=== PATIENT | female | born 1945 | race Caucasian/White ===

== ENCOUNTER → 2020-02-27 15:00 | Outpatient (CLI) | payer MEDICARE, OTHER, SELFPAY ==
--- NOTE | ~2020-02-27 | MM_ITS ---
EXAMINATION: MM screening paola BI w carl HISTORY: Screening mammogram TECHNIQUE: Craniocaudal and mediolateral oblique 3-D tomosynthesis images were obtained and synthetic 2-D images were generated. CAD analysis was submitted and interpreted. COMPARISON: 01/14/2018, 12/16/2016, 12/19/2015 bilateral digital screening mammogram examinations BREAST PARENCHYMAL COMPOSITION: There are scattered areas of fibroglandular density. FINDINGS: Numerous bilateral scattered benign calcifications. There is no evidence of suspicious mass , calcification, or architectural distortion to suggest malignancy in either breast. There has been n o suspicious interval change. IMPRESSION: 1. No mammographic evidence of malignancy. 2. Recommend routine screening mammography in one year. BI-RADS Category 2: Benign finding(s). Reviewed, dictated and finalized at location A. LING MACHINE OPERATOR
== END ==
PROVIDERS: PCP Internal Medicine; Visit Provider Internal Medicine
DX: Z12.31 Encounter for screening mammogram for malignant neoplasm of breast (principal)
CPT/HCPCS: 77063; 77067

== ENCOUNTER 2020-09-28 17:47 | Emergency (ER) | payer MEDICARE, OTHER, SELFPAY ==
[2020-09-28 17:56] VITALS: BP 134/80; PULSE 98; RESP 20; TEMP 37.3; O2SAT 97
--- NOTE | 2020-09-28 17:57 | ED.GENADULT ---
HPI - General Adult General Chief complaint: Urogenital-Female Stated complaint: uti Source: patient Mode of arrival: ambulatory Limitations: no limitations History of Present Illness HPI narrative: Patient is a 75-year-old female who presents to the [facility] via POV for evaluation of urinary symptoms that initially began September 20, 2020. Additionally, she reports urinary frequency and urinary urgency. She was treated with a 7-day course of Bactrim DS by her primary care provider and finished her last dose yesterday. She states symptoms returned today prompting today's visit. Symptoms improved with increasing water intake. Denies aggravating factors. History of UTIs. States today symptoms are identical to previous UTIs. Of note, patient states certain foods cause me to have diarrhea which then lead to UTIs . Patient reports resistance to Macrobid and Bactrim DS and is requesting Cipro. Denies a history of renal insufficiency and diabetes mellitus. Patient reports having annual labs drawn by her provider. Last lab draw was approximately 6 months ago. She also brings with her a copy of her urinalysis obtained on 09/20/2020. Results of 09/20/2020 UA are as follows urine dipstick: Color: [place]; Clarity: Clear; Glucose: 100 mg/dL; Bilirubin: negative; Ketones: negative, Specific [place]: 1.010; Blood: 1+; pH: Protein: negative; URO: 0.2 E.U/dL; Nitrites: Positive; Leukocytes: 3+. Related Data Home Medications Medication Instructions Recorded Confirmed amlodipine-benazepril 10 - 20 cap DAILY 04/05/19 04/05/19 montelukast 19 mg DAILY 04/05/19 04/05/19 omeprazole 40 mg DAILY 04/05/19 04/05/19 Allergies Allergy/AdvReac Type Severity Reaction Status Date / Time scopolamine Allergy Mild MAKES PT Verified 09/28/20 17:55 CRAZY /VIOLENT/COMBATIVE/CONFUSED tomato Allergy Mild NAUSEA/RASH Verified 09/28/20 17:55 celecoxib Allergy Unknown Other Verified 09/28/20 17:55 naproxen Allergy Unknown Other Verified 09/28/20 17:55 nifedipine Allergy Unknown Other Verified 09/28/20 17:55 guaifenesin AdvReac Intermediate NAUSEA Verified 09/28/20 17:55 NAPROXEN SODIUM Allergy Severe HIVES Uncoded 09/28/20 17:55 Review of Systems Review of Systems: Narrative: Denies fever, chills, change in appetite, fatigue, swollen LNs, cp, palpitations, sob, n/v/d/c, hematuria, pyuria, incontinence, back pain, and myalgias. Denies history of pyelonephritis and renal calculi PMFSH Past Medical History Medical History Arthritis Asthma exacerbation Cataracts, bilateral COPD (chronic obstructive pulmonary disease) FH: cholecystectomy Fibromyalgia GERD (gastroesophageal reflux disease) Hypertension Rotator cuff arthropathy Urinary tract infection Uterine fibroid Surgical History Surgical History H/O inguinal hernia repair H/O: hysterectomy History of orthopedic surgery Right wrist x2 from fractures Family History Family History Other Family history of arthritis Family history of congenital heart disease Family history of glaucoma Family history of malignant neoplasm Hypertension Social History Social History Smoking status: Former smoker Smoking end date: 03/29/04 Alcohol intake: current Comments I have reviewed and agree with the patient's past medical, surgical, social, and family hx as documented by the RN. There is no relevant family history pertinent to the presenting complaint. Exam Narrative: Exam Narrative: GENERAL: Well-appearing, well-nourished, and in no acute distress. HEAD: Normocephalic, atraumatic. NECK: Supple. No lymphadenopathy or nuchal rigidity. CHEST: Lung sounds are clear to auscultation in bilateral lung brooks. No respiratory distress. HE
== END 2020-09-28 18:30 | disposition home or self-care (01) ==
PROVIDERS: Emergency Provider Nurse Practitioner Family; PCP Internal Medicine
DX: N39.0 Urinary tract infection, site not specified (principal); M19.90 Unspecified osteoarthritis, unspecified site; J44.9 Chronic obstructive pulmonary disease, unspecified; M79.7 Fibromyalgia; K21.9 Gastro-esophageal reflux disease without esophagitis; I10 Essential (primary) hypertension; Z87.891 Personal history of nicotine dependence
CPT/HCPCS: 81003; 87077; 87086; 87186; 99213; G0463

== ENCOUNTER → 2021-04-15 12:23 | Outpatient (CLI) | payer MEDICARE, OTHER, SELFPAY ==
--- NOTE | ~2021-04-15 | MM_ITS ---
EXAMINATION: MM screening paola BI w carl HISTORY: Screening TECHNIQUE: Craniocaudal and mediolateral oblique 3-D tomosynthesis images were obtained and synthetic 2-D images were generated. CAD analysis was submitted and interpreted. COMPARISON: Comparison to multiple prior studies sequentially, with oldest reviewed study dated 12/07. BREAST PARENCHYMAL COMPOSITION: Breast composed of scattered areas of fibroglandular density FINDINGS: There is no evidence of suspicious mass, calcification, or architectural distortion to sugg est malignancy in either breast. There has been no suspicious interval change. IMPRESSION: 1. No mammographic evidence of malignancy. 2. Recommend routine screening mammography in one year. BI-RADS Category 1: Negative Reviewed, dictated and finalized at location A. D CARE CENTER ASSISTANT DIRECTOR
== END ==
PROVIDERS: PCP Internal Medicine; Visit Provider Internal Medicine
DX: Z12.31 Encounter for screening mammogram for malignant neoplasm of breast (principal)
CPT/HCPCS: 77063; 77067

== ENCOUNTER → 2022-08-03 15:06 | Outpatient (CLI) | payer MEDICARE, OTHER, SELFPAY ==
--- NOTE | ~2022-08-03 | MM_ITS ---
EXAMINATION: MM screening paola BI w carl HISTORY: Screening mammogram TECHNIQUE: Craniocaudal and mediolateral oblique 3-D tomosynthesis images were obtained and synthetic 2-D images were generated. CAD analysis was submitted and interpreted. COMPARISON: 04/15/2021, 02/27/2020, 01/04/2018 BREAST PARENCHYMAL COMPOSITION: There are scattered areas of fibroglandular density. FINDINGS: Scattered benign-appearing calcifications are present. No suspicious mass, calcification, o r architectural distortion are identified in either breast to suggest malignancy. There has been no s uspicious interval change. IMPRESSION: 1. No mammographic evidence of malignancy. 2. Recommend routine screening mammography in one year. BI-RADS Category 2: Benign finding(s). Reviewed, dictated and finalized at location A.
== END ==
PROVIDERS: PCP Internal Medicine; Visit Provider Internal Medicine
DX: Z12.31 Encounter for screening mammogram for malignant neoplasm of breast (principal)
CPT/HCPCS: 77063; 77067

== ENCOUNTER 2023-02-12 09:39 | Outpatient (CLI) | payer MEDICARE, OTHER, SELFPAY ==
--- NOTE | 2023-02-12 10:24 | ECG_ITS ---
Measurements Intervals [place] Rate: 74 P: 37 WA: 154 QRS: 5 QRSD: 89 T: 21 QT: 403 QTc: 448 Interpretive Statements SINUS RHYTHM POSSIBLE LEFT ATRIAL ENLARGEMENT LOW QRS VOLTAGE IN PRECORDIAL LEADS POOR R WAVE PROGRESSION, CONSIDER ANTERIOR INFARCT BORDERLINE T WAVE ABNORMALITY- ANTERIOR LEADS BASELINE ARTIFACT- I, II, III, AVR, AVL, AVF, V1-V6 ABNORMAL ECG COMPARED TO ECG 12/14/2018 11:01:59 NO SIGNIFICANT CHANGES Electronically Signed On 02-12-2023 11:33:02 PLANT OPERATOR CONTROL ROOM OPERATOR by Misha Rodriguez D.O.
[2023-02-12 10:46] LABS: Basophils Absolute Auto 0.1 K/mm3 (0.0-0.1); Basophils Percent Auto 0.7 % (0.2-1.2); Eosinophils Absolute Auto 0.2 K/mm3 (0-0.3); Eosinophils Percent Auto 1.6 % (0-4.4); Hematocrit 46.8 % (37.0-47.0); Hemoglobin 14.9 g/dL (12.0-15.0); Immature Granulocyte Absolute 0.05 K/mm3 (0.00-0.031); Immature Granulocyte Percent A 0.5 % (0-0.5); Lymphocytes Absolute Auto 1.97 K/mm3 (0.9-3.2); Lymphocytes Percent Auto 18.4 % (18.3-44.2); Mean Corpuscular HGB Conc 31.8 g/dl (32-36); Mean Corpuscular Hemoglobin 28.1 pg (26-34); Mean Corpuscular Volume 88.1 fl (80-100); Mean Platelet Volume 9.9 fl (7.4-10.4); Monocytes Absolute Auto 0.8 K/mm3 (0.1-0.6); Monocytes Percent Auto 7.2 % (2.6-8.5); Neutrophils Absolute Auto 7.7 K/mm3 (1.3-6.7); Neutrophils Percent Auto 71.6 % (45.5-73.1); Platelet Count Result 304 k/mm3 (150-375); Red Blood Count 5.31 M/mm3 (4.2-5.4); Red Cell Distribution Width 12.9 % (11.5-14.5); White Blood Count 10.7 K/mm3 (4.5-10.0)
== END 2023-02-12 09:40 | disposition home or self-care (01) ==
LOC: ANHSURGERY 09:45
PROVIDERS: PCP Internal Medicine; Visit Provider Orthopaedic Surgery
DX: M75.121 Complete rotator cuff tear or rupture of right shoulder, not specified as traumatic (principal); I10 Essential (primary) hypertension; Z01.818 Encounter for other preprocedural examination; R94.31 Abnormal electrocardiogram [ECG] [EKG]
CPT/HCPCS: 36415; 85025; 87081; 93005

== ENCOUNTER 2023-03-09 00:25 | Day surgery (SDC) | payer MEDICARE, OTHER, SELFPAY ==
--- NOTE | 2023-02-12 09:47 | PC.NURSE ---
PRE-OP INSTRUCTIONS, PLEASE READ CAREFULLY Report to the Outpatient Waiting Room, entrance under the green pavilion located off [facility], at time _0830_ on date _03/09/23_. Planned Procedure Time: _1030_. PACK A SMALL OVERNIGHT BAG AND LEAVE IN THE CAR Time changes happen often and if your time is changed the preop area will call you the afternoon before. - You and your visitor will be asked to self-screen and do not enter if you have any COVID symptoms. - A mask is optional within the hospital at this time. -VISITING HOURS 8AM-8PM Patients may have clear liquids (water, carbonated beverages, clear teas, apple juice) until 3 hours prior to surgery (0730 AM) with a maximum of 20 ounces. - No food from midnight until time of surgery Take the following medications with a SIP of water the morning of surgery: _NONE_ DO NOT STOP ANY OF YOUR OTHER PRESCRIPTION MEDICATIONS PRIOR TO SURGERY ?EXCEPT THE FOLLOWING Medications to discontinue per DR. RUSSELL - _IBUPROFEN 7 DAYS PRIOR TO SURGERY, Date to take last dose 03/01/23_ Please no make-up, nail omani, hairspray, perfume, deodorant, or body powder the day of surgery. No jewelry (including any body piercings) or valuables the day of surgery, leave them at home. Please take a shower or bath the night before, or the morning of, surgery with an antibacterial soap. Wear comfortable, loose fitting clothing. - Jewelry must be removed prior to entering the operating room. Rings and piercings that are not removed may be cut off. - The hospital will not accept responsibility for valuables. - Please leave all valuables, including medications, at home the day of surgery. If you are going home after surgery, a licensed hack driver must drive you home. - NO public transportation without another adult if you receive anesthesia. - We recommend that an adult stay with you for 24 hours following discharge. - We also recommend that you do not drive, make important decision, drink alcoholic beverages, or take any drugs that were not prescribed by your health care provider for at least 24 hours after your discharge time. Follow any additional instructions given to you from your surgeon. If you or anyone in your household have experienced Covid symptoms in the past week, please notify your surgeon or the nurse liaison at the phone number below for possible testing. Instructions given to _PATIENT & SPOUSE_and asked if any additional questions and then verbalized understanding. Patient advised to call surgeon office or pre surgery nurse liaison [phone] if any additional questions.
[2023-02-12 10:05] VITALS: BP 114/56; PULSE 72; RESP 18; TEMP 36.9; O2SAT 97; BMI 26.4
[2023-03-09] VITALS (18 sets, daily range): BP systolic 104–141; BP diastolic 60–80; PULSE 61–90; RESP 12–18; TEMP 36.5–37; O2SAT 92–100
--- NOTE | ~2023-03-09 | XR_ITS ---
EXAMINATION: XR shoulder RT min 2V DATE: 03/09/2023 10:05 INDICATION: Right shoulder arthroplasty. Postop. TECHNIQUE: 2 views of right shoulder were obtained. COMPARISON: Right shoulder radiographs 01/06/2023 FINDINGS: There is a reverse angg-gry-ydakmc total right shoulder arthroplasty in near-anatomic align ment. No fracture. There is moderate osteoarthritis of acromioclavicular joint. There is gas in the s oft tissues, consistent with recent surgery. IMPRESSION: 1. Total right shoulder arthroplasty in near-anatomic alignment. 2. Moderate osteoarthritis of acromioclavicular joint. Reviewed, dictated and finalized at location A. E HAND DREDGE OR BARGE
[2023-03-09] MEDS: LACTATED RINGERS 1,000 ML 30 ML IV CONT ×2 (06:45→09:50)
[2023-03-09] MEDS: ACETAMINOPHEN 500 MG TABLET 1000 MG PO ×3 (06:45→21:11)
--- NOTE | 2023-03-09 06:58 | WPDHPUPDATE1 ---
History and Physical Update Update Date/Time: 03/09/23 06:58 History and Physical has been reviewed, including an updated exam of the patient. There are NO changes in the patient's condition. Risks, benefits, and alternatives have been discussed and questions answered. Patient agrees to proceed with procedure.
[2023-03-09] MEDS: TRANEXAMIC ACID 1,000MG/ISO100 1,000 MG/100 ML BAG 200 MG IVPB (06:59)
--- NOTE | 2023-03-09 07:22 | WPDANESEPPF ---
Anes - Initial Pre Proc Eval Procedure: Operation Date: 03/09/23 07:30 Proposed Procedures p Right Reverse Total Shoulder Arthroplasty - Luis Mendoza MD Date/Time: 03/09/23 07:22 Surgeon: Luis Mendoza MD Pre Op Diagnosis: complete right rot cuff tear Patient Data Age: 78 Gender: F Height: 1.59 m Weight: 66 kg Last Vital Signs Temp 36.6 C 03/09/23 06:51 Pulse 84 03/09/23 06:51 Resp 14 03/09/23 06:51 BP 132/80 03/09/23 06:51 Pulse Ox 99 03/09/23 06:51 O2 Del Method Room Air 03/09/23 06:51 Allergies Allergy/AdvReac Type Severity Reaction Status Date / Time scopolamine Allergy Mild MAKES PT Verified 02/12/23 10:02 CRAZY /VIOLENT/COMBATIVE/CONFUSED tomato Allergy Mild NAUSEA/RASH Verified 02/12/23 10:02 celecoxib Allergy Unknown Rash Verified 02/12/23 10:02 nifedipine Allergy Unknown RAPID Verified 02/12/23 10:02 HEART RATE guaifenesin AdvReac Intermediate NAUSEA Verified 02/12/23 10:02 NAPROXEN SODIUM Allergy Severe HIVES Uncoded 02/12/23 10:02 Home Medications Medication Instructions Recorded Confirmed Type amlodipine 10 mg-benazepril 20 mg 10 - 20 cap DAILY 04/05/19 03/09/23 History capsule montelukast 10 mg tablet 10 mg DAILY 04/05/19 03/09/23 History omeprazole 40 mg capsule,delayed 40 mg DAILY 04/05/19 03/09/23 History release ibuprofen 600 mg tablet 600 mg PO QID PRN Pain 02/12/23 02/12/23 History aspirin 81 mg tablet,delayed 81 mg PO BID 14 days #28 tabs 03/09/23 Rx release tramadol 50 mg tablet 50 mg PO Q4H PRN pain #40 tabs 03/09/23 Rx Laboratory Tests 03/09/23 06:31 Blood Type A Positive Antibody Screen Pending Patient hx anesthesia problems: post op nausea/vomiting Family hx anesthesia problems: none Results Review: All pre-operative results and documents have been reviewed as part of the pre-operative evaluation. [facility] Past Medical History Medical History Arthritis Asthma exacerbation Cataracts, bilateral COPD (chronic obstructive pulmonary disease) FH: cholecystectomy Fibromyalgia GERD (gastroesophageal reflux disease) Hypertension Rotator cuff arthropathy Urinary tract infection Uterine fibroid Surgical History Surgical History H/O inguinal hernia repair H/O: hysterectomy History of orthopedic surgery Right wrist x2 from fractures Family History Family History Other Family history of arthritis Family history of congenital heart disease Family history of glaucoma Family history of malignant neoplasm Hypertension Social History Social History Smoking packs per day: 1 Smoking cigarettes per day: 20.0 Years smoked: 42 Smoking pack-years: 42.00 Smoking status: Former smoker Tobacco type: cigarettes Second hand tobacco smoke exposure: No Smoking end date: 03/29/04 Alcohol intake: current Drinks per week: 7 Alcohol use details: WINE Substance use: never Substance use type: does not use Lack of Transportation: No Lack of Food: Never True Current Housing: I Have Housing Concerned About Future Housing: No Difficulty Paying Gas/Electric Bills: No Difficulty Paying for Meds: No Currently Unemployed: No Education: High School Diploma/GED Difficulty w/ Childcare or Family Care: No Living arrangements: with family Spiritual care concerns: No Anes - Eval Final PreProcedure Day of Procedure 03/09/23 07:22 Patient weight: overweight Heart: regular rate and rhythm Lungs: decreased breath sounds Airway: Mallampati scale class II Neurological: alert and oriented Last oral intake: >/= 8 hours ASA classification: III Emergent: no Anesthetic plan: proceed Anesthesia type and monitoring: general ETT and st
[2023-03-09] MEDS: ceFAZolin 2 GM/D5W 50 ML 2 GM/50 ML BAG IVPB ×3 (07:32→23:19)
[2023-03-09] MEDS: VANCOMYCIN HCL 1,000 MG VIAL 1000 MG TOPICAL (08:21)
--- NOTE | 2023-03-09 09:44 | W.PM.PROC2 ---
Procedure Note - Detailed Date of Procedure 03/09/23 Pre-op Diagnosis Rotator cuff arthropathy, right shoulder. Post-op Diagnosis Same Procedure Performed Reverse total shoulder arthroplasty, right. Surgeon Luis Mendoza MD Arcade Games Mechanic Arti Disla PA-C Anesthesia General and Regional (Interscalene block.) Indications Massive chronic cuff tear, s/p failed partial repair. Findings Moderate degenerative changes. Very posterior cuff repair intact. Good bone quality. Preoperative moderate contracture. Capsule release performed. Description of Procedure The patient was given an interscalene block in the preoperative area. Preoperative antibiotics were given. The patient was transferred to the operating room and a general anesthetic was administered. The beach chair position was used at 45 degrees. All bony prominences were padded. The head was carefully stabilized on the [facility] automatic head sawyer. A sterile prep and drape was performed in the usual manner with ChloraPrep. A longitudinal incision was created at the anterior shoulder just lateral to the deltopectoral interval. Hydrogen peroxide was placed on the incision and then rinsed after one minute. Careful dissection was performed to expose the interval and protect the cephalic vein. The vein was retracted medially. The upper border of the pectoralis was released. Anterior circumflex vessel branches were suture ligated. The biceps was tenodesed. A subscapularis tenotomy was performed. The inferior capsule was released, exposing the humeral head. Osteophytes were removed. Care was taken to stay on bone to protect the axillary nerve. The anatomic head cut was taken with the oscillating saw. The guide pin was placed, central drilling performed, and the broach trial inserted. The neck anteversion and inclination were carefully assessed. The cut protector was placed, and attention was turned to the glenoid. Retractors were placed. Releases were carried out for exposure. The subscapularis was mobilized, the inferior capsule and long head of triceps released, and the superior and middle glenohumeral ligaments released as well. Labral tissue was resected as needed. The sizing template was used to assess the baseplate position low on the glenoid. A guide pin was placed. Minimal reaming was used to accomplish a flat surface without violating the subchondral bone. Version was corrected according to preoperative templating. The boss was drilled, and the real component was impacted into position. Supplemental locking screws were placed centrally, superiorly, and inferiorly. The glenosphere was impacted into the taper. The proximal humerus was reamed for the inset component. The humeral components were trialed. The real humeral stem, tray, and insert were impacted into position. The shoulder was copiously irrigated periodically with pulsatile lavage. The shoulder was reduced and stability confirmed. 1 gram of Vancomycin powder was placed in the joint. The biceps tenodesis was incorporated with the pectoralis tendon repair. The deltopectoral space was reapproximated with number 1 Vicryl. The remaining tissue was closed with 0 Quill and 2-0 Quill running suture and steri-strips. A sterile silver occlusive dressing and shoulder immobilizer were placed. The patient was transferred to the recovery room. Physician surgeon's assistant, Arti Disla PA-C, required for surgery; including patient positioning, draping, tissue retraction, maintaining instrument position, wound closure, and dressing placement. Implants Shoulder Innovations reverse TSA size 0 stem. +0 polyethylene insert. Standard baseplate. 33 +3 mm glenosphere. Estimated Blood Loss 300 Drains No Pathology None sent Complications No immediate complications Condition Stable Disposition PACU [facility] Billing Surgery - Charge Forward: Surgery Billing
--- NOTE | 2023-03-09 11:24 | SUR.PHASEI ---
Patient meets PACU discharge criteria, unit bed unavailable at this time. Patient placed in extended recovery status.
--- NOTE | 2023-03-09 12:08 | SUR.PHASEI ---
Moving to preop room 3 for holding due to room not available on floor.
[2023-03-09] MEDS: IBUPROFEN 600 MG TABLET PO ×2 (14:55→21:12)
--- NOTE | 2023-03-09 16:33 | ADMGEN ---
This patient, Jocelin Pak, was admitted to Medical Room 247-01. Patient/family oriented to hospital policies and general routines including ID bracelet, bed and alarms, visiting hours, pain management, procedures, bathroom and other care routines, personal items, smoking policy, room service/diet, and visiting hours. Information on how to activate the Rapid Response Team has been discussed. Patient/Family are encouraged to report perceived risks to care and to ask questions if they do not understand what they are told or what they should do.
[2023-03-09] MEDS: SENNA/DOCUSATE SODIUM TABLET 2 TAB PO (17:37)
[2023-03-09] MEDS: ASPIRIN 81 MG ENTERIC TABLET PO (17:37)
[2023-03-09] MEDS: MONTELUKAST SODIUM 10 MG TABLET PO (21:11)
[2023-03-10] MEDS: ACETAMINOPHEN 500 MG TABLET 1000 MG PO ×2 (03:05→09:24)
[2023-03-10 03:41] VITALS: BP 120/66; PULSE 74; RESP 17; TEMP 36.5; O2SAT 95
[2023-03-10 06:16] LABS: Basophils Percent Auto 0.2 % (0.2-1.2); Eosinophils Percent Auto 0.3 % (0-4.4); Hematocrit 38.6 % (37.0-47.0); Hemoglobin 12.5 g/dL (12.0-15.0); Immature Granulocyte Absolute 0.05 K/mm3 (0.00-0.031); Immature Granulocyte Percent A 0.5 % (0-0.5); Lymphocytes Absolute Auto 1.32 K/mm3 (0.9-3.2); Lymphocytes Percent Auto 12.2 % (18.3-44.2); Mean Corpuscular HGB Conc 32.4 g/dl (32-36); Mean Corpuscular Volume 86.5 fl (80-100); Mean Platelet Volume 9.9 fl (7.4-10.4); Monocytes Absolute Auto 1.1 K/mm3 (0.1-0.6); Monocytes Percent Auto 10.4 % (2.6-8.5); Neutrophils Absolute Auto 8.2 K/mm3 (1.3-6.7); Neutrophils Percent Auto 76.4 % (45.5-73.1); Platelet Count Result 225 k/mm3 (150-375); Red Blood Count 4.46 M/mm3 (4.2-5.4); Red Cell Distribution Width 12.5 % (11.5-14.5); White Blood Count 10.8 K/mm3 (4.5-10.0)
[2023-03-10 06:25] LABS: Anion Gap 5 mmol/L (8-16); Blood Urea Nitrogen 14 mg/dL (7-17); Calcium 8.5 mg/dL (8.4-10.2); Carbon Dioxide 23 mmol/L (22-30); Chloride 108 mmol/L (98-107); Estimated CRCL calculation 54 ml/min; Estimated Glomerular Filt Rate > 60; Glucose 102 mg/dL (65-110); Sodium 136 mmol/L (137-145)
[2023-03-10] MEDS: ceFAZolin 2 GM/D5W 50 ML 2 GM/50 ML BAG IVPB (06:35)
[2023-03-10 07:41] VITALS: BP 120/62; PULSE 72; RESP 16; TEMP 36.4; O2SAT 96
--- NOTE | 2023-03-10 08:18 | PM.DS ---
DS: Admitting Diagnosis Discharge Date 03/10/23 Admitting Diagnosis Rotator cuff arthropathy. DS: Discharge Diagnosis Discharge Diagnosis (1) Status post reverse total arthroplasty of right shoulder: Code(s): Z96.611 - Presence of right artificial shoulder joint Status: Acute Assessment and Plan: Postop day 1: Right reverse total shoulder arthroplasty. Patient tolerated procedure well. No complications. Pain manageable with pain medication. No numbness or tingling. We had a lengthy discussion regarding postoperative wound care, limitations, expectations, and exercises. Patient shows good understanding. She has had initial physical therapy and is tolerating it well. DVT prophylaxis: 81 mg baby aspirin b.i.d. for 14 days. Pain medication: Tramadol. Ibuprofen. Tylenol. Patient has followup appointment with Dr. Mendoza in 3 weeks. DS: Summary Hospital Course Hospital Course: Patient has had initial PT/OT and tolerating it well. She has completed IV antibiotics. Status at Discharge Functional status at discharge: independent ambulation Overall status at discharge: patient is progressing back to baseline Time Spent with Patient Time attestation: Total time spent providing and/or coordinating discharge services: Exam Narrative: Normal weight Female. Resting comfortably in bed. Wearing sling. Dressing dry and intact with no drainage. Moderate swelling. Moderate ecchymosis. No erythema. No hematoma. Range of motion limited due to pain. Calf nontender. Neurologic status intact. No varicosities. Distal pulses palpable. DS: Data Data Completed and Pending Labs on day of discharge: Labs from last 24 hours 03/10/23 06:03 WBC 10.8 H RBC 4.46 Hgb 12.5 Hct 38.6 MCV 86.5 MCH 28.0 MCHC 32.4 RDW 12.5 Plt Count 225 MPV 9.9 Immature Gran % (Auto) 0.5 Neut % (Auto) 76.4 H Lymph % (Auto) 12.[address] [place] % (Auto) 10.4 H Eos % (Auto) 0.3 Baso % (Auto) 0.2 Lymph # (Auto) 1.32 [place] # (Auto) 1.1 H Eos # (Auto) 0.0 Baso # (Auto) 0.0 Abs Immat Gran (auto) 0.05 H Absolute Neuts (auto) 8.2 H Absolute Nucleated RBC 0.0 Nucleated RBC % 0.0 Sodium 136 L Potassium 4.0 Chloride 108 H Carbon Dioxide 23 Anion Gap 5 L BUN 14 Creatinine 0.60 L Estim Creat Clear Calc 54 Estimated GFR > 60 Glucose 102 Calcium 8.5 Discharge Plan Discharge Patient Disposition: Home, Self-Care Discharge Instructions: See green instruction sheet Stand Alone Forms: General Discharge Instructions Follow-up/Referrals: Arti Disla PA [Physician Magnetic Tape Typewriter Operator] - Discharge Medications: New aspirin 81 mg tablet,delayed release (DR/EC) 81 mg PO BID 14 Days Qty: 28 0RF tramadol 50 mg tablet 50 mg PO Q4H PRN (Reason: pain) Qty: 40 0RF Continued omeprazole 40 mg capsule,delayed release(DR/EC) 40 mg DAILY montelukast 10 mg tablet 10 mg DAILY amlodipine-benazepril 10-20 mg capsule 10 - 20 cap DAILY ibuprofen 600 mg Tablet 800 mg PO QID PRN (Reason: Pain)
[2023-03-10] MEDS: ASPIRIN 81 MG ENTERIC TABLET PO (09:24)
[2023-03-10] MEDS: IBUPROFEN 600 MG TABLET PO (09:25)
[2023-03-10] MEDS: PANTOPRAZOLE 40 MG TABLET PO (09:25)
== END 2023-03-10 09:50 | disposition home or self-care (01) ==
LOC: ANHSURGERY 07:15 → ANH2MED 14:17
PROVIDERS: Physician Assistant Surgical; PCP Internal Medicine; Visit Provider Orthopaedic Surgery
PROC: (CPT 23472; principal; 2023-03-09 07:30)
DX: M75.121 Complete rotator cuff tear or rupture of right shoulder, not specified as traumatic (principal); M19.011 Primary osteoarthritis, right shoulder; I10 Essential (primary) hypertension; J44.9 Chronic obstructive pulmonary disease, unspecified; K21.9 Gastro-esophageal reflux disease without esophagitis; M79.7 Fibromyalgia; Z79.82 Long term (current) use of aspirin; Z87.891 Personal history of nicotine dependence
CPT/HCPCS: 23472; 36415; 73030; 80048; 85025; 86850; 86900; 86901; 97110; 97161; 97165; 97530; 97535; A4565; A9270; C1776; J0171; J0690; J1100; J1170; J2250; J2270; J2405; J2704; J2795; J3370; J7120

== ENCOUNTER 2023-03-26 10:32 | Outpatient (CLI) | payer MEDICARE, OTHER, SELFPAY ==
--- NOTE | ~2023-03-26 | XR_ITS ---
EXAMINATION: XR shoulder RT min 2V DATE: 03/26/2023 10:50 INDICATION: Follow-up of recent right total shoulder arthroplasty TECHNIQUE: AP internally and externally rotated, AP oblique externally rotated and transscapular Y vi ews of the right shoulder were obtained. COMPARISON: None FINDINGS: Again seen is a reverse right total shoulder arthroplasty which is in near anatomic alignment. There is a suture anchor at the greater tuberosity suggesting an earlier rotator cuff repair. No fracture. Moderate acromioclavicular osteoarthritis. There is suggestion of severe lower cervical spondylosis. Soft tissues are unremarkable. Visualized portion of the lungs are clear. IMPRESSION: 1. Expected appearance post reverse right total shoulder arthroplasty. 2. Moderate right acromioclavicular osteoarthritis. Reviewed, dictated and finalized at location A. RWRITING OPERATIONS MANAGER
== END 2023-03-26 10:33 | disposition home or self-care (01) ==
PROVIDERS: PCP Internal Medicine; Visit Provider Orthopaedic Surgery
DX: Z96.611 Presence of right artificial shoulder joint (principal); M19.011 Primary osteoarthritis, right shoulder
CPT/HCPCS: 73030

== ENCOUNTER 2023-08-03 08:24 | Outpatient (CLI) | payer MEDICARE, OTHER, SELFPAY ==
--- NOTE | ~2023-08-03 | XR_ITS ---
EXAMINATION: XR shoulder RT min 2V DATE: 08/03/2023 08:57 INDICATION: Presence of right artificial shoulder joint. TECHNIQUE: 4 views of right shoulder were obtained. COMPARISON: Right shoulder radiographs 04/28/2023 FINDINGS: There is a reverse iref-duq-htubnc total right shoulder arthroplasty in near-anatomic align ment. No periprosthetic lucency to suggest loosening or infection. There is a screw in the greater tu berosity. No fracture. There is severe osteoarthritis of acromioclavicular joint. IMPRESSION: 1. Reverse vwus-tyq-buniax total right shoulder arthroplasty in near-anatomic alignment. 2. Severe osteoarthritis of acromioclavicular joint. Reviewed, dictated and finalized at location A. IMPRESSION: 1. Reverse mffy-liy-dfkqaz total right shoulder arthroplasty in near-anatomic a lignment. 2. Severe osteoarthritis of acromioclavicular joint.
== END 2023-08-03 08:25 | disposition home or self-care (01) ==
PROVIDERS: Visit Provider Orthopaedic Surgery
DX: M19.011 Primary osteoarthritis, right shoulder (principal); Z96.611 Presence of right artificial shoulder joint
CPT/HCPCS: 73030

== ENCOUNTER 2023-09-03 12:11 | Outpatient (CLI) | payer MEDICARE, OTHER, SELFPAY ==
--- NOTE | ~2023-09-03 | MM_ITS ---
EXAMINATION: MM screening [facility] HISTORY: Screening TECHNIQUE: Craniocaudal and mediolateral oblique 3-D tomosynthesis images were obtained and synthetic 2-D images were generated. CAD analysis was submitted and interpreted. COMPARISON: Comparison to multiple prior studies sequentially, with oldest reviewed study dated 12/18. BREAST PARENCHYMAL COMPOSITION: There are scattered areas of fibroglandular density. FINDINGS: There is no evidence of suspicious mass, calcification, or architectural distortion to sugg est malignancy in either breast. There has been no suspicious interval change. IMPRESSION: 1. No mammographic evidence of malignancy. 2. Recommend routine screening mammography in one year. BI-RADS Category 1: Negative Reviewed, dictated and finalized at location B.
== END 2023-09-03 12:12 ==
LOC: MICIMG 12:12
PROVIDERS: PCP Internal Medicine; Visit Provider Internal Medicine
DX: Z12.31 Encounter for screening mammogram for malignant neoplasm of breast (principal)
CPT/HCPCS: 77063; 77067

== ENCOUNTER 2024-11-10 12:22 | Outpatient (CLI) | payer MEDICARE, OTHER, SELFPAY ==
--- NOTE | ~2024-11-10 | MM_ITS ---
EXAMINATION: MM screening [facility] HISTORY: Screening TECHNIQUE: Craniocaudal and mediolateral oblique 3-D tomosynthesis images were obtained and synthetic 2-D images were generated. CAD analysis was submitted and interpreted. COMPARISON: Comparison to multiple prior studies sequentially, with oldest reviewed study dated 12/16. BREAST PARENCHYMAL COMPOSITION: Not dense: There are scattered areas of fibroglandular density. FINDINGS: There is no evidence of suspicious mass, calcification, or architectural distortion to sugg est malignancy in either breast. There has been no suspicious interval change. IMPRESSION: 1. No mammographic evidence of malignancy. 2. Recommend routine screening mammography in one year. BI-RADS Category 1: Negative Reviewed, dictated and finalized at location A.
== END 2024-11-10 12:23 | disposition home or self-care (01) ==
LOC: MICIMG 12:23
PROVIDERS: PCP Internal Medicine; Visit Provider Internal Medicine
DX: Z12.31 Encounter for screening mammogram for malignant neoplasm of breast (principal)
CPT/HCPCS: 77063; 77067